=== PATIENT | female | born 2000 | race Caucasian/White ===

== ENCOUNTER 2021-05-22 09:57 | Inpatient (IN) | payer BC ==
[2021-05-22] MEDS ORDERED: LORazepam 2 MG/ML INJ IV STA ×2 (10:17→10:18)
[2021-05-22] MEDS ORDERED: levETIRAcetam IV 1,000 MG in SALINE 1 100ML.BAG IVPB STA (10:23)
[2021-05-22] MEDS ORDERED: NALOXONE 0.4 MG/ML 1 ML VIAL IV PRN (10:35)
[2021-05-22] MEDS ORDERED: LORazepam 2 MG/ML INJ IV PRN (10:35)
--- NOTE | 2021-05-22 10:35 | ED ---
General Adult HPI - General Chief complaint: Seizure Stated complaint: seizure Time Seen by Provider: 05/22/21 09:59 Source: patient, EMS, RN notes reviewed, old records reviewed (Reviewed report from [facility]) Mode of arrival: EMS Limitations: altered mental status, physical limitation - History of Present Illness Initial comments: Patient is a 21-year-old female presenting to the emergency department from new onset seizure. Patient was seen and [facility] earlier today and patient had a seizure at home. Patient had a second seizure lasted around 30 seconds in the emergency department. Patient was given Valium. Patient has no history of seizures previously shortly after arrival patient does have generalized tonic clonic seizure activity lasting a some 1 minute. Patient is postictal following this and further history is limited. - Related Data Allergies Allergy/AdvReac Type Severity Reaction Status Date / Time No Known Allergies Allergy Verified 05/22/21 10:00 Review of Systems ROS Statement: Those systems with pertinent positive or pertinent negative responses have been documented in the HPI. Limitations: ROS unobtainable due to patients medical condition Past Medical History Additional Past Medical History / Comment(s): Tachycardia History of Any Multi-Drug Resistant Organisms: None Reported Past Surgical History: No Surgical Hx Reported Past Psychological History: ADD/ADHD, Anxiety, Depression Smoking Status: Vaper Past Alcohol Use History: Occasional Past Drug Use History: Marijuana General Exam Limitations: altered mental status, physical limitation General appearance: alert, other (Patient with generalized tonic-clonic activity and postictal following this.) Head exam: Present: atraumatic Eye exam: Present: normal appearance, PERRL Neck exam: Present: normal inspection. Absent: tenderness, meningismus Respiratory exam: Present: normal lung sounds bilaterally Cardiovascular Exam: Present: regular rate, normal rhythm GI/Abdominal exam: Present: soft. Absent: tenderness Extremities exam: Present: normal inspection Neurological exam: Present: altered Psychiatric exam: Present: other (Nonverbal) Skin exam: Present: normal color Course Vital Signs 05/22/21 05/22/21 10:00 10:21 Temperature 98.4 F Pulse Rate 74 112 H Respiratory 18 18 Rate Blood Pressure 115/73 122/68 O2 Sat by Pulse 97 92 L Oximetry Medical Decision Making - Medical Decision Making Patient was given Ativan. Patient will be started on Keppra. Dr. Edmondson has been called for admission for Dr. Crowell. Neurology will also be placed on consult Disposition Clinical Impression: New onset seizure Disposition: ADMITTED IP TO THIS HOSP Instructions (If sedation given, give patient instructions): Seizure/Epilepsy Discharge Instructions & Follow-Up Is patient prescribed a controlled substance at d/c from ED?: No Referrals: Martín Crowell MD [Primary Care Provider] - 1-2 days Decision Time: 10:35
[2021-05-22] MEDS: SODIUM CHLORIDE 0.9% 1,000 ML IV SCH (10:42)
[2021-05-22 14:52] LABS: Appearance,Urine Clear (Clear); Bilirubin,Urine Negative (Negative); Blood,Urine Negative (Negative); Color,Urine Light Yellow; Glucose,Urine (UA) Negative (Negative); Ketones,Urine 1+ (Negative); Leukocyte Esterase,Urine Negative (Negative); Nitrite,Urine Negative (Negative); PH, Urine 6.5 (5.0-8.0); Protein,Urine Negative (Negative); Specific Gravity,Urine 1.014 (1.001-1.035); Urobilinogen,Urine <2.0 mg/dL (<2.0)
[2021-05-22 15:38] LABS: Amphetamine Screen,Urine Not Detected (NotDetected); Cocaine Screen,Urine Not Detected (NotDetected); Opiate Screen,Urine Not Detected (NotDetected); Phencyclidine Screen,Urine Not Detected (NotDetected); Urn Cannabinoid Scrn Detected (NotDetected)
[2021-05-22 15:39] LABS: Barbiturate Screen,Urine Not Detected (NotDetected); Benzodiazepines Screen,Urine Detected (NotDetected); Methadone Screen, Urine Not Detected (NotDetected); Oxycodone Screen, Urine Not Detected (NotDetected); Tricyclic Antidepressant,Urine Not Detected (NotDetected)
[2021-05-22] MEDS ORDERED: LACTULOSE 20 GM/30 ML CUP PO PRN (19:48)
[2021-05-22] MEDS ORDERED: CALCIUM CARBONATE 500 MG CHEWABLE PO PRN (19:48)
[2021-05-22] MEDS ORDERED: ACETAMINOPHEN TAB 325 MG TAB PO PRN (19:48)
[2021-05-22] MEDS ORDERED: ONDANSETRON 4 MG/2 ML VIAL IVP PRN (19:48)
--- NOTE | 2021-05-22 19:51 | P.HPIM ---
History of Present Illness H&P Date: 05/22/21 Chief Complaint: Seizure This is a 21-year-old patient who follows with Dr. Crowell. History is obtained by the mother at the bedside. Chronic stable medical conditions include ADHD, depression, has been taking medications for about 4 years. When she was younger she had episodes of tachycardia. Did follow up with cardiology. No specific diagnosis. Patient is dose vaping also does marijuana. She works at a restaurant. Lives with her boyfriend. Early hours of the morning patient is boyfriend called the patient's mother stating that something was not right. Episode of seizure was witnessed that including her staring out arms stretched out patient being confused afterwards. Prior to that patient had made along moaning sound. Patient was then taken to [facility] where she had a second episode. Patient also had an episode in our ER. Patient did receive Valium. Also received IV Keppra 750 mg. Neurology was consulted. No prior history of head injury. No history of childhood seizures. Patient herself is somewhat lethargic to give any history right although she does wake up. Admitting review of systems cannot be done as patient other lethargic. Past medical history to include: ADHD, depression, tachycardia Social history: Lives with her boyfriend. Works at a restaurant. Does vaping and marijuana. Family history: Father from esophageal cancer. Had a bypass in his 50s. Physical examination: VITAL SIGNS: 98.4, 74, 18, 115/73, 97% room air upon presentation GENERAL: BMI 20.4, laying in bed lethargic but arousable. EYES: Pupils equal. Conjunctiva normal. HEENT: External appearance of nose and ears normal, oral cavity grossly normal. Nose and ear piercing NECK: JVD not raised; masses not palpable. HEART: First and second heart sounds are normal; no edema. LUNGS: Respiratory rate normal; clear to auscultation. ABDOMEN: Soft, nontender, liver spleen not palpable, no masses palpable. PSYCH: Patient is lethargic but able to assessl. NEUROLOGICAL: Cranial nerves grossly intact; no facial asymmetry, power and se nsation grossly intact. LYMPHATICS: No lymph nodes palpable in the axilla and neck INVESTIGATIONS, reviewed in the clinical context: UA positive for ketones 1+ Urine drug screen: Positive for benzodiazepine, marijuana Assessment and plan: -New onset of seizures in a patient who was at 3 episodes of what appears to be tonic-clonic seizure. No history of head injury. No prior seizure activity. Patient does take marijuana. Note that patient also on Effexor XR. Neuro checks. IV Keppra. Ativan when necessary. Neurology consultation. MRI brain -ADHD: Amiodarone 10 mg a day -Anxiety depression Effexor XL 75 mg daily, hold currently. Xanax 0.5 mg twice a day -Nicotine dependence in the form of vaping. -Recreational marijuana use Care was discussed with the mother the bedside. IV fluids. Subcu Lovenox. Resume home medications except for Effexor XR. Neuro checks. MRI of the brain. EEG Past Medical History Additional Past Medical History / Comment(s): Tachycardia History of Any Multi-Drug Resistant Organisms: None Reported Past Surgical History: No Surgical Hx Reported Additional Past Surgical History / Comment(s): [place] teeth extractions. Past Anesthesia/Blood Transfusion Reactions: No Reported Reaction Past Psychological History: ADD/ADHD, Anxiety, Depression Additional Psychological History / Comment(s): Pt resides with her boyfriend. She is independent. Smoking Status: Vaper Past Alcohol Use History: Occasional Past Drug Use History: Marijuana - Past Family History Father Family Medical History: Cancer Additional Family Medical History / Comment(s): Father is from esophageal cancer. He had CABG in his 50s. Mother Additional Family Medical History / Comment(s): POTS Medications and Allergies Home Medications Medication Instructions Recorded Confirmed Type ALPRAZolam [Xanax] 0.5 mg PO BID 05/22/21 05/22/21 History Dextroamphetamine/Amphetamine 10 mg PO DAILY 05/22/21 05/22/21 History [Adderall] Norgestimate-Ethinyl Estradiol 1 tab PO DAILY 05/22/21 05/22/21 History [Tri-Estarylla Tablet] Venlafaxine HCl [Effexor XR] 75 mg PO DAILY 05/22/21 05/22/21 History Allergies Allergy/AdvReac Type Severity Reaction Status Date / Time No Known Allergies Allergy Verified 05/22/21 11:05 Physical Exam Vitals: Vital Signs Temp Pulse Pulse Resp BP BP Pulse Ox 05/22/21 17:40 98.3 F 92 17 94/71 95 05/22/21 17:12 94 16 110/72 97 05/22/21 16:30 94 18 110/72 98 05/22/21 15:30 71 18 114/63 97 05/22/21 14:30 106 H 18 90/63 96 05/22/21 13:30 106 H 18 80/56 96 05/22/21 10:43 96 18 120/57 96 05/22/21 10:21 112 H 18 122/68 92 L 05/22/21 10:00 98.4 F 74 18 115/73 97 Intake and Output 05/22/21 05/22/21 05/22/21 06:59 14:59 22:59 Intake Total 240 Balance 240 Intake: Oral 240 Other: # Voids 2 Weight 58.967 kg Results Labs: Abnormal Lab Results - Last 24 Hours (Table) 05/22/21 Range/Units 14:30 Urine Ketones 1+ H (Negative) U Benzodiazepines Scrn Detected H (NotDetected) U Marijuana (THC) Screen Detected H (NotDetected) Thrombosis Risk Factor Assmnt - Choose All That Apply Any of the Below Risk Factors Present?: Yes Each Factor Represents 1 point: Medical pt on bed rest Other Risk Factors: No Other congenital or acquired thrombophilia - If yes, enter type in comment: No Thrombosis Risk Factor Assessment Total Risk Factor Score: 1 Thrombosis Risk Factor Assessment Level: Low Risk
[2021-05-22] MEDS: ALPRAZolam 0.5 MG TAB PO SCH (22:34)
[2021-05-22] MEDS: levETIRAcetam IV 750 MG in SODIUM CHLORIDE 0.9% 100 ML IVPB SCH (22:34)
[2021-05-22] MEDS: NICOTINE 14MG/24HR PATCH TRANSDERM SCH (22:34)
[2021-05-22] MEDS: ENOXAPARIN 40 MG/0.4 ML SYRINGE SQ SCH (22:34)
--- NOTE | 2021-05-23 | P.CNNES ---
History of Present Illness Consult date: 05/22/21 Requesting physician: Davon Lopez Reason for Consult: New onset seizure History of Present Illness: Patient is a 21-year-old female with history of tachycardia came to the hospital by ambulance today at 9:57 AM for new onset seizure. Patient was transferred from [facility]. EMS flow sheet not available in the chart. Patient's mother and patient's friend were present today. Patient last night was staying at her boyfriend's house, when while sleeping at 3 AM, he heard a strange sound and noticed that her arms went out, her back started arching, she was frothing from the mouth. She was not responding at that time. Patient's boyfriend rolled her out of bed on her side. Patient did bite her tongue, but did not lose control of urine. Patient's boyfriend brought her to the [facility], and arrived there at around 5 AM. Patient states that prior to going to sleep, she was feeling fine. She just remembers waking up when she was going to her boyfriend's truck. After patient was brought to [facility], patient had a seizure in the ER, for which she was given Valium. She had a computed tomography scan an EKG done at that time. Patient was transferred to [facility] by ambulance. She had a third seizure in this ER. Patient was given Ativan and Keppra loading dose 1000 mg IV PB. She has not had any further seizures since then. Patient's friend had mentioned that patient does jerk a lot at night while sleeping. Usually in the middle of the sleep, not while waking up. Patient had some headache earlier in the ER but now it's gone. Patient's workup at [facility] revealed normal CBC, sodium 136 (137- 145), magnesium 20, TSH normal, coronavirus negative. EKG with normal sinus rhythm. Patient denies any history of concussions, no family history of epilepsy. Patient does take Adderall 10 mg daily, Effexor XR 75 mg every day, Xanax 0.5 mg at bedtime and control pills. Patient takes her medication very regularly, does not miss a dose, does not take excessive at other times. Patient states that she has history of tachycardia, which makes her feel lightheaded. Patient's mother states that she has been having spells in the last 2 months, in which she gets hot feeling, does not feel right, anxious, not comfortable, like will pass out. This would last for about 30 minutes but there is no loss of consciousness, no change in level of alertness or awareness. She can still talk and respond during these spells. These are happening about once or twice a week for the last couple months. She gets diaphoretic at that time. She never had any history of seizure ever in her life otherwise. Patient has history of tachycardia since she was a teenager. The tachycardia produces lightheadedness. Her above symptoms are completely different as compared to her history of tachycardia. Patient's UA is negative. Urine drug screen positive for marijuana and benzodiazepines. Urine hCG negative. Patient states that she has drank energy drinks in the past but has not done any for last 1-1/2 months. She does not drink excessive caffeine. She does not sleep well typically. Patient states she smokes marijuana, denies any drug use. Review of Systems As above in detail. All other review of systems reviewed and unremarkable. Denies any chest pain, abdominal pain, nausea vomiting diarrhea. Her tongue is swollen. No fever or chills. No headache at this time. No double vision or loss of vision. Past Medical History Additional Past Medical History / Comment(s): Tachycardia History of Any Multi-Drug Resistant Organisms: None Reported Past Surgical History: No Surgical Hx Reported Additional Past Surgical History / Comment(s): [place] teeth extractions. Past Anesthesia/Blood Transfusion Reactions: No Reported Reaction Past Psychological History: ADD/ADHD, Anxiety, Depression Additional Psychological History / Comment(s): Pt resides with her boyfriend. She is independent. Smoking Status: Vaper Past Alcohol Use History: Occasional Past Drug Use History: Marijuana - Past Family History Father Family Medical History: Cancer Additional Family Medical History / Comment(s): Father is from esophageal cancer. He had CABG in his 50s. Mother Additional Family Medical History / Comment(s): POTS Medications and Allergies Home Medications Medication Instructions Recorded Confirmed Type ALPRAZolam [Xanax] 0.5 mg PO BID 05/22/21 05/22/21 History Dextroamphetamine/Amphetamine 10 mg PO DAILY 05/22/21 05/22/21 History [Adderall] Norgestimate-Ethinyl Estradiol 1 tab PO DAILY 05/22/21 05/22/21 History [Tri-Estarylla Tablet] Venlafaxine HCl [Effexor XR] 75 mg PO DAILY 05/22/21 05/22/21 History Nicotine 14Mg/24Hr Patch [Habitrol] 1 patch TRANSDERM DAILY #14 patch 05/23/21 Rx levETIRAcetam [Keppra] 750 mg PO Q12HR #60 tab 05/23/21 Rx Allergies Allergy/AdvReac Type Severity Reaction Status Date / Time No Known Allergies Allergy Verified 05/22/21 11:05 Physical Examination - Vital Signs Vital Signs: Vital Signs Temp Pulse Pulse Resp BP BP Pulse Ox 05/22/21 17:40 98.3 F 92 17 94/71 95 05/22/21 17:12 94 16 110/72 97 05/22/21 16:30 94 18 110/72 98 05/22/21 15:30 71 18 114/63 97 05/22/21 14:30 106 H 18 90/63 96 05/22/21 13:30 106 H 18 80/56 96 05/22/21 10:43 96 18 120/57 96 05/22/21 10:21 112 H 18 122/68 92 L 05/22/21 10:00 98.4 F 74 18 115/73 97 Intake and Output 05/22/21 05/22/21 05/22/21 06:59 14:59 22:59 Intake Total 240 Balance 240 Intake: Oral 240 Other: # Voids 2 Weight 58.967 kg Patient is a young female, in no acute distress. Patient is alert awake oriented to time place and person. Speech and language functions are normal. Attention, concentration and fund of knowledge is adequate. On cranial examination, pupils are round and reacting to light, visual swan are full on confrontation, extraocular muscles are intact with no nystagmus. Face is symmetric, tongue protrudes to the midline. Palatal elevation and sensation normal, hearing and shoulder shrug normal, facial sensation normal. Shoulder shrug normal. Patient's tongue is significantly bruised, right side much worse than left. On muscle strength testing, there is no pronator drift and the strength is normal in arms and legs distally and proximally. Deep tendon reflexes are 2+ and symmetric and plantars downgoing. Sensory to touch is equal with no neglect. Cerebellar function showed no ataxia for [id number] testing. No dysdiadochokinesia. Tone and bulk of muscles normal. Gait normal. On general examination, there is no carotid bruit or murmur, S1-S2 audible. Abdomen is soft nontender. Chest is clear. Peripheral pulses are present. No edema. Results - Laboratory Findings CBC and BMP: 05/23/21 06:34 Abnormal Lab Findings: Abnormal Labs 05/22/21 14:30 Urine Ketones 1+ H U Benzodiazepines Scrn Detected H U Marijuana (THC) Screen Detected H Assessment and Plan Assessment: * New onset seizure, unclear etiology. Patient had 3 grand mal seizures in a matter of about 6-8 hours. No obvious provoking factor identified. Patient does take Xanax, which she takes it regularly, does not miss a dose. ? Benzo withdrawal seizure. Her urine was positive for benzodiazepine, but it was taken after she has received Valium at [facility]. Patient denies excessive caffeine. * History of tachycardia. * Marijuana use. Plan: * MRI of the brain with and without contrast * EEG in the morning * Continue Keppra 750 mg twice a day * Patient informed of [place] state law of no driving unless seizure free for 6 months, climbing ladders, operating dangerous machinery or unsupervised swimming. * Telemetry monitoring. * We will follow after above test results are completed. Thank you for the consultation.
[2021-05-23] MEDS: SODIUM CHLORIDE 0.9% 1,000 ML IV SCH ×2 (01:38→15:58)
[2021-05-23 06:59] LABS: Basophils % (A) 0 %; Eosinophils # (A) 0.1 k/uL (0-0.7); Eosinophils % (A) 1 %; HCT 34.4 % (34.0-46.0); HGB 11.3 gm/dL (11.4-16.0); Lymphocytes # (A) 2.5 k/uL (1.0-4.8); Lymphocytes % (A) 38 %; MCH 29.9 pg (25.0-35.0); MCHC 32.8 g/dL (31.0-37.0); MCV 90.9 fL (80.0-100.0); Mean Platelet Volume 7.8; Monocytes # (A) 0.3 k/uL (0-1.0); Monocytes % (A) 5 %; Neutrophils # (A) 3.6 k/uL (1.3-7.7); Neutrophils % (A) 54 %; Platelet Count 219 k/uL (150-450); RBC 3.78 m/uL (3.80-5.40); RDW 13.5 % (11.5-15.5); WBC 6.7 k/uL (3.8-10.6)
[2021-05-23] MEDS ORDERED: NORGESTIMATE ETHINYL ESTRADIOL PO SCH (09:00)
[2021-05-23] MEDS ORDERED: Dextroamphetamine/Amphetamine [Adderall] PO SCH (09:00)
[2021-05-23] MEDS: ALPRAZolam 0.5 MG TAB PO SCH (09:50)
[2021-05-23] MEDS: ENOXAPARIN 40 MG/0.4 ML SYRINGE SQ SCH (09:51)
[2021-05-23] MEDS: NICOTINE 14MG/24HR PATCH TRANSDERM SCH (09:52)
[2021-05-23] MEDS: levETIRAcetam IV 750 MG in SODIUM CHLORIDE 0.9% 100 ML IVPB SCH (10:16)
[2021-05-23] MEDS ORDERED: VENLAFAXINE HCL ER 75 MG CAP PO SCH (11:15)
[2021-05-23 11:45] VITALS: BMI 20.3
[2021-05-23 13:21] VITALS: BP 111/69; PULSE 71; RESP 18; TEMP 99.1
[2021-05-23 13:59] LABS: Magnesium 2.1 mg/dL (1.5-2.4)
--- NOTE | 2021-05-23 14:51 | MR ---
PRE AND POSTCONTRAST ENHANCED MRI OF THE BRAIN: CLINICAL HISTORY: New onset seizures CONTRAST: Gadavist 6 mL Multiplanar and multispin-echo imaging of the brain was performed both before and after the administr ation of contrast. The ventricles, basal cisterns and sulci overlying the cerebral convexities are within normal limits. There is no evidence for midline shift or mass effect. Acute intracranial hemorrhage or extra-axial collection is not evident. There are no abnormal areas of increased or decreased signal intensity within the brain parenchyma. Following contrast administration, there is no evidence for pathologic enhancement or enhancing mass. The paranasal sinuses and mastoid air cells are well-aerated. IMPRESSION: Unremarkable pre and postcontrast enhanced MRI of the brain.
--- NOTE | 2021-05-23 17:42 | EEG ---
ELECTROENCEPHALOGRAM REPORT DATE OF SERVICE: 05/23/2021. PREAMBLE: This is a 21-year-old female with new-onset seizures. This study is performed to evaluate for any epileptiform activity. EEG FINDINGS: This is a 21-channel digital EEG recorded with video competent, utilizing 10/20 international system with referential and bipolar montages. Background consists of moderately well developed and regulated, somewhat disorganized mixed frequencies of alpha, some theta and some fast frequency beta activity seen in bihemispheric region. Background is posterior-dominant and is slightly reactive to eye opening and closing. Some dysrhythmic mixed theta and delta activity was seen in the left posterior temporal region, which at times appears artifactual in nature. Some drowsiness was seen with bilaterally symmetric theta frequency rhythm. Brief stage II sleep was seen with presence of some sleep spindles. Photic driving response was not seen. There were a few documentations of either jaw tremoring, slight body jerk or head jerk, but there was no associated electrographic correlate with these events. No focal or generalized epileptiform activity was seen. IMPRESSION: This is a borderline abnormal EEG due to slightly disorganized background, suggestive of nonspecific generalized cerebral dysfunction. Suggest prolonged EEG for further evaluation of any epileptiform activity. MMODL / IJN: [id number] /
--- NOTE | 2021-05-23 17:52 | P.PN ---
Subjective Progress Note Date: 05/23/21 Patient was seen for a follow-up. Patient's mother and boyfriend were both present today. Patient states her headache is completely gone. She had some frontal temporal headache, like a sinus headache, but now is completely resolved. Patient states that she does get headache "time to time". Denies any upper respiratory infection. Patient believes her memory is normal. No memory loss. Denies any fever or chills. Denies any photophobia, light or noise sensitivity or any neck stiffness. Her tongue swelling has improved. Still difficulty to eat because of tongue laceration. On asking detailed history, it appears patient does use marijuana 1 joint a day, although per her boyfriend she does more than that. She also does Vaping a lot. She denies any sleep deprivation, although her boyfriend states that she does jerk a lot at night. Objective - Vital Signs Vital signs: Vital Signs Temp 99.1 F 05/23/21 12:30 Pulse 71 05/23/21 12:30 Resp 18 05/23/21 12:30 BP 111/69 05/23/21 12:30 Pulse Ox 100 05/23/21 12:30 Intake & Output 05/22/21 05/23/21 05/23/21 18:59 06:59 18:59 Intake Total 240 200 240 Balance 240 200 240 Weight 58.967 kg 58.967 kg Intake: Oral 240 200 240 Other: # Voids 2 1 - Exam Patient's mental status, speech and language functions are normal. She is oriented 3. She knows that she is in [facility] in [place]. Her affect is normal. Cranial nerves are normal. Muscle strength is normal. Her gait is perfectly normal. No nuchal rigidity. - Labs CBC & Chem 7: 05/23/21 06:34 Labs: Abnormal Lab Results - Last 24 Hours (Table) 05/23/21 Range/Units 06:34 RBC 3.78 L (3.80-5.40) m/uL Hgb 11.3 L (11.4-16.0) gm/dL Assessment and Plan Assessment: * New onset seizure, unclear etiology. Patient had 3 grand mal seizures in a matter of about 6-8 hours. No obvious provoking factor identified. Concerned about possible Xanax withdrawal seizure, but patient states she has been taking Xanax regularly, does not miss a dose. Her urine was positive for benzodiazepine, but it was taken after she has received Valium at [facility]. Patient denies excessive caffeine. * History of tachycardia. * Marijuana use. * History of Vaping * Attention deficit disorder, on Adderall Plan: * MRI of the brain with and without contrast was performed, which is normal. No abnormal signal in the hippocampus. I personally reviewed the MRI as well. * EEG was performed, which is technically limited because of some electrode artifacts, and also was borderline abnormal EEG due to slightly disorganized background, suggestive of nonspecific generalized cerebral dysfunction. Suggest prolonged EEG for further evaluation of any epileptiform activity. * Continue Keppra 750 mg twice a day * I had a very prolonged discussion with the patient, mother and boyfriend. Then I had another discussion with Dr. Edmondson and with the patient and her family as well. It does appear that patient does multiple substances including prescribed Adderall, Xanax, Effexor, marijuana, on top she also does a lot of vaping. It is suspected that combination of these may have provoked the seizures. Patient's headache is completely resolved. She has no meningeal signs. We discussed about possibility of lumbar puncture, but patient completely declined. She wants to go home. Her white cells are normal including normal differential. Her temperature is 98.0 axillary. She has no meningeal signs, therefore likelihood of any intracranial infection is extremely low. Patient was recommended to return to the hospital if she gets any headaches, high fevers or recurrence of seizure. * Patient informed of [place] state law of no driving unless seizure free for 6 months, climbing ladders, operating dangerous machinery or unsupervised swimming. * Patient will undergo 2.5 hour EEG as an outpatient followed by appointment with Dr. Sherman for management of her seizure disorder. * In the meantime patient will continue with Keppra 750 mg twice a day. Time with Patient: Greater than 30
[2021-05-23 19:44] LABS: African American GFR (CKD) 121.3 (60.0-200.0); Albumin/Globulin Ratio 2.11 (1.60-3.17); Anion Gap 16.8 mmol/L (10.00-18.00); BUN/Creat Ratio 11.38 Ratio (12.00-20.00); Blood Urea Nitrogen 9.1 mg/dL (9.0-27.0); Calcium 8.6 mg/dL (8.7-10.3); Carbon Dioxide 17.2 mmol/L (20.0-27.5); Globulin 1.9 g/dL (1.6-3.3); Non-African American GFR(CKD) 104.6 (60.0-200.0); Potassium 3.5 mmol/L (3.5-5.5); Total Bilirubin 0.6 mg/dL (0.30-1.20); Total Protein 5.9 g/dL (6.2-8.2)
--- NOTE | 2021-05-23 23:00 | P.DS ---
Providers Date of admission: 05/22/21 10:35 Expected date of discharge: 05/23/21 Attending physician: Sam Edmondson Consults: 05/22/21 10:36 Consult Physician Urgent Consulting Provider: Brandan Newsome Consult Reason/Comments: new onset seizure Do you want consulting provider notified?: Yes Primary care physician: [facility] Course: Chief Complaint: Seizure This is a 21-year-old patient who follows with Dr. Crowell. History is obtained by the mother at the bedside. Chronic stable medical conditions include ADHD, depression, has been taking medications for about 4 years. When she was younger she had episodes of tachycardia. Did follow up with cardiology. No specific diagnosis. Patient is dose vaping also does marijuana. She works at a restaurant. Lives with her boyfriend. Early hours of the morning patient is boyfriend called the patient's mother stating that something was not right. Episode of seizure was witnessed that including her staring out arms stretched out patient being confused afterwards. Prior to that patient had made along moaning sound. Patient was then taken to [facility] where she had a second episode. Patient also had an episode in our ER. Patient did receive Valium. Also received IV Keppra 750 mg. Neurology was consulted. No prior history of head injury. No history of childhood seizures. Patient herself is somewhat lethargic to give any history right although she does wake up. Today: Discussed with Dr. Palumbo from neurology. Effexor to be continued. EEG did not show any seizure activity. Patient is feeling really well today. No headaches. No fever. Patient has a bit of a swollen tongue that she bit it. Has been out of bed. Patient is counseled at length about vaping and no marijuana. As advised about seizure precautions including no driving. Care was discussed both with the mother and patient boyfriend. And Dr. Palumbo. Patient to follow-up with Dr. Crane as outpatient. MRI of the brain was negative. Discussion and discharge planning more than 35 minutes Consultation: Dr. Palumbo from neurology Past medical history to include: ADHD, depression, tachycardia Social history: Lives with her boyfriend. Works at a restaurant. Does vaping and marijuana. Family history: Father from esophageal cancer. Had a bypass in his 50s. Physical examination: VITAL SIGNS: 99.1, 71, 18, 111/69, 100% room air GENERAL: Sitting up comfortable awake EYES: Pupils equal. Conjunctiva normal. HEENT: External appearance of nose and ears normal, oral cavity grossly normal. Nose and ear piercing. Right central tongue a bit swollen with tongue bite NECK: JVD not raised; masses not palpable. HEART: First and second heart sounds are normal; no edema. LUNGS: Respiratory rate normal; clear to auscultation. ABDOMEN: Soft, nontender, liver spleen not palpable, no masses palpable. PSYCH: AO 3, mood and affect normal. NEUROLOGICAL: Cranial nerves grossly intact; no facial asymmetry, power and sensation grossly intact. INVESTIGATIONS, reviewed in the clinical context: MRI brain: Unremarkable EEG: Negative for epilepsy UA positive for ketones 1+ Urine drug screen: Positive for benzodiazepine, marijuana Assessment and plan: -New onset of seizures in a patient who was at 3 episodes of what appears to be tonic-clonic seizure. MRI and EEG both negative. Continue with Catapres and 50 mg twice a day. Seizure precautions. Advised not to take vaping or marijuana. -ADHD: Adderall 10 mg a day -Anxiety depression Effexor XL 75 mg daily, Xanax 0.5 mg twice a day -Nicotine dependence in the form of vaping. Counseled -Recreational marijuana use Counseled Disposition: Home Plan - Discharge Summary Discharge Rx Participant: No New Discharge Prescriptions: New levETIRAcetam [Keppra] 750 mg PO Q12HR #60 tab Nicotine 14Mg/24Hr Patch [Habitrol] 1 patch TRANSDERM DAILY #14 patch Continue Venlafaxine HCl [Effexor XR] 75 mg PO DAILY Norgestimate-Ethinyl Estradiol [Tri-Estarylla Tablet] 1 tab PO DAILY Dextroamphetamine/Amphetamine [Adderall] 10 mg PO DAILY ALPRAZolam [Xanax] 0.5 mg PO BID Discharge Medication List ALPRAZolam [Xanax] 0.5 mg PO BID 05/22/21 [History] Dextroamphetamine/Amphetamine [Adderall] 10 mg PO DAILY 05/22/21 [History] Norgestimate-Ethinyl Estradiol [Tri-Estarylla Tablet] 1 tab PO DAILY 05/22/21 [History] Venlafaxine HCl [Effexor XR] 75 mg PO DAILY 05/22/21 [History] Nicotine 14Mg/24Hr Patch [Habitrol] 1 patch TRANSDERM DAILY #14 patch 05/23/21 [Rx] levETIRAcetam [Keppra] 750 mg PO Q12HR #60 tab 05/23/21 [Rx] Follow up Appointment(s)/Referral(s): Martín Crowell MD [Primary Care Provider] - 1-2 days Guillermo Crane MD [Medical Doctor] - 2 Weeks Patient Instructions/Handouts: Seizure/Epilepsy Discharge Instructions & Fol low-Up Activity/Diet/Wound Care/Special Instructions: No driving until further notice Discharge Disposition: HOME SELF-CARE
== END 2021-05-23 18:22 | disposition home or self-care (01) | DRG 101 ==
LOC: EC 09:57 → 5NMEDONC 10:35
PROVIDERS: ADMIT Hospitalist; ATTEND Hospitalist
DX: G40.409 Other generalized epilepsy and epileptic syndromes, not intractable, without status epilepticus (principal); F13.239 Sedative, hypnotic or anxiolytic dependence with withdrawal, unspecified; S01.512A Laceration without foreign body of oral cavity, initial encounter; F17.290 Nicotine dependence, other tobacco product, uncomplicated; F41.8 Other specified anxiety disorders; F12.90 Cannabis use, unspecified, uncomplicated; F90.9 Attention-deficit hyperactivity disorder, unspecified type; Z79.899 Other long term (current) drug therapy; X58.XXXA Exposure to other specified factors, initial encounter; Z86.79 Personal history of other diseases of the circulatory system
CPT/HCPCS: 70553; 80053; 80306; 81003; 81025; 83735; 85025; 95816; 96374; 99285

== ENCOUNTER → 2021-05-30 | Outpatient (CLI) | payer BC | LOC: NEUROMAIN 06:24 | PROVIDERS: ATTEND Psychiatry & Neurology Neurology | DX: R56.9 Unspecified convulsions (principal) | CPT/HCPCS: 95713 ==

== ENCOUNTER 2021-06-08 16:12 | Emergency (ER) | payer BC ==
[2021-06-08 16:27] VITALS: TEMP 98.2
--- NOTE | 2021-06-08 17:01 | ED ---
General Adult HPI - General Chief complaint: Psychiatric Symptoms Stated complaint: Headache,Mental Health Time Seen by Provider: 06/08/21 16:45 Source: patient, family, RN notes reviewed, old records reviewed Mode of arrival: ambulatory Limitations: no limitations - History of Present Illness Initial comments: 21-year-old female presents to the emergency room, alert and oriented 4, with complaints of increasing depression. She had a telephone health visit with her physician today stating that she's had increased depression since starting on Keppra in April for seizure disorder. Her Dr. states that this could be a side effect of the Keppra and to come to the emergency room for evaluation of her worsening depression. Patient states that she does not have a suicidal plan but she does wish she was . Patient has not been hospitalized for depression in the past. Family at bedside states that the doctor was suggesting switching her seizure medication to Vimpat. Patient states that she used to use THC and vape but quit in April after her seizures started. She states that she lives at home with her mom part-time and stays with her boyfriend part-time. She is in a safe relationship. -: days(s) (1) Severity scale (1-10): 0 Treatments Prior to Arrival: none - Related Data Home Medications Medication Instructions Recorded Confirmed ALPRAZolam [Xanax] 0.5 mg PO BID PRN 05/22/21 06/08/21 Norgestimate-Ethinyl Estradiol 1 tab PO DAILY 05/22/21 06/08/21 [Tri-Estarylla Tablet] Venlafaxine HCl [Effexor XR] 75 mg PO DAILY 05/22/21 06/08/21 Nicotine 7Mg/24Hr Patch [Habitrol] 1 patch TRANSDERM DAILY 06/08/21 06/08/21 levETIRAcetam [Keppra] 500 mg PO BID 06/08/21 06/08/21 Allergies Allergy/AdvReac Type Severity Reaction Status Date / Time No Known Allergies Allergy Verified 06/08/21 18:01 Review of Systems ROS Statement: Those systems with pertinent positive or pertinent negative responses have been documented in the HPI. ROS Other: All systems not noted in ROS Statement are negative. Past Medical History Additional Past Medical History / Comment(s): nocturnal seizures. Tachycardia History of Any Multi-Drug Resistant Organisms: None Reported Past Surgical History: No Surgical Hx Reported Additional Past Surgical History / Comment(s): [place] teeth extractions. Past Anesthesia/Blood Transfusion Reactions: No Reported Reaction Past Psychological History: ADD/ADHD, Anxiety, Depression Smoking Status: Vaper Past Alcohol Use History: Occasional Past Drug Use History: Marijuana - Past Family History Father Family Medical History: Cancer Additional Family Medical History / Comment(s): Father is from esophageal cancer. He had CABG in his 50s. Mother Additional Family Medical History / Comment(s): POTS General Exam Limitations: no limitations General appearance: alert, in no apparent distress Head exam: Present: atraumatic, normocephalic, normal inspection Eye exam: Present: normal appearance, EOMI. Absent: scleral icterus, conjunctival injection ENT exam: Present: normal exam, normal oropharynx, mucous membranes moist Neck exam: Present: normal inspection, full ROM. Absent: tenderness, meningismus, lymphadenopathy, thyromegaly Respiratory exam: Present: normal lung sounds bilaterally. Absent: respiratory distress, wheezes, rales, rhonchi, stridor, chest wall tenderness, accessory muscle use, decreased breath sounds, prolonged expiratory Cardiovascular Exam: Present: regular rate, normal rhythm, normal heart sounds. Absent: systolic murmur, diastolic murmur, rubs, gallop, clicks, JVD GI/Abdominal exam: Present: soft, normal bowel sounds. Absent: distended, tenderness, guarding, rebound, rigid Back exam: Absent: tenderness, CVA tenderness (R), CVA tenderness (L) Neurological exam: Present: alert, oriented X3, normal gait Psychiatric exam: Present: normal affect, depressed, suicidal ideation (Denies plan, states that she wishes she was ) Course Vital Signs 06/08/21 06/08/21 06/08/21 16:21 17:00 18:00 Temperature 98.2 F Pulse Rate 94 Respiratory 20 18 18 Rate Blood Pressure 131/85 O2 Sat by Pulse 97 Oximetry 06/08/21 06/08/21 19:00 20:53 Temperature Pulse Rate 74 Respiratory 18 18 Rate Blood Pressure 130/86 O2 Sat by Pulse 96 Oximetry Medical Decision Making - Medical Decision Making 21-year-old female presents with increasing depression, sent by her doctor. States worsening depression since starting Keppra in April for seizure disorder. Patient was seen by EPS nurse Caal and is found not to meet inpatient criteria and can be discharged home. She is going home with her mother. They will contact their primary care doctor regarding changing her seizure medications. She was given her scheduled dose of 500 mg of Keppra in the emergency room. Patient is agreeable to this plan of care. I did discuss this case with Dr. Roca. - Lab Data Lab Results 06/08/21 06/08/21 Range/Units 18:49 18:51 Urine Color Light Yellow Urine Appearance Clear (Clear) Urine pH 7.5 (5.0-8.0) Ur Specific [place] 1.006 (1.001-1.035) Urine Protein Negative (Negative) Urine Glucose (UA) Negative (Negative) Urine Ketones Negative (Negative) Urine Blood Negative (Negative) Urine Nitrite Negative (Negative) Urine Bilirubin Negative (Negative) Urine Urobilinogen <2.0 (<2.0) mg/dL Ur Leukocyte Esterase Negative (Negative) Urine Opiates Screen Not Detected (NotDetected) Ur Oxycodone Screen Not Detected (NotDetected) Urine Methadone Screen Not Detected (NotDetected) Ur Propoxyphene Screen Not Detected (NotDetected) Ur Barbiturates Screen Not Detected (NotDetected) U Tricyclic Antidepress Not Detected (NotDetected) Ur Phencyclidine Scrn Not Detected (NotDetected) Ur Amphetamines Screen Not Detected (NotDetected) U Methamphetamines Scrn Not Detected (NotDetected) U Benzodiazepines Scrn Not Detected (NotDetected) Urine Cocaine Screen Not Detected (NotDetected) U Marijuana (THC) Screen Detected H (NotDetected) Disposition Clinical Impression: Depression Disposition: HOME SELF-CARE Condition: Good Instructions (If sedation given, give patient instructions): Depression (ED) Additional Instructions: Follow-up with the primary care doctor tomorrow morning. Return to the emergency room with any new or concerning symptoms. Is patient prescribed a controlled substance at d/c from ED?: No Referrals: None,Stated [REFERRING] - 1-2 days Time of Disposition: 20:29
[2021-06-08] MEDS ORDERED: ACETAMINOPHEN TAB 325 MG TAB PO STA (18:22)
[2021-06-08 18:57] LABS: Appearance,Urine Clear (Clear); Bilirubin,Urine Negative (Negative); Blood,Urine Negative (Negative); Color,Urine Light Yellow; Glucose,Urine (UA) Negative (Negative); Ketones,Urine Negative (Negative); Leukocyte Esterase,Urine Negative (Negative); Nitrite,Urine Negative (Negative); PH, Urine 7.5 (5.0-8.0); Protein,Urine Negative (Negative); Specific Gravity,Urine 1.006 (1.001-1.035); Urobilinogen,Urine <2.0 mg/dL (<2.0)
[2021-06-08 19:20] LABS: Amphetamine Screen,Urine Not Detected (NotDetected); Barbiturate Screen,Urine Not Detected (NotDetected); Benzodiazepines Screen,Urine Not Detected (NotDetected); Cocaine Screen,Urine Not Detected (NotDetected); Methadone Screen, Urine Not Detected (NotDetected); Opiate Screen,Urine Not Detected (NotDetected); Oxycodone Screen, Urine Not Detected (NotDetected); Phencyclidine Screen,Urine Not Detected (NotDetected); Tricyclic Antidepressant,Urine Not Detected (NotDetected); Urn Cannabinoid Scrn Detected (NotDetected)
[2021-06-08 19:22] VITALS: RESP 18
[2021-06-08] MEDS ORDERED: levETIRAcetam 500 MG TAB PO STA (20:27)
[2021-06-08 20:54] VITALS: BP 130/86; PULSE 74
== END 2021-06-08 21:02 | disposition home or self-care (01) ==
LOC: EC 16:12
DX: F32.A Depression, unspecified (principal); F41.9 Anxiety disorder, unspecified; F90.9 Attention-deficit hyperactivity disorder, unspecified type; F12.90 Cannabis use, unspecified, uncomplicated; F17.290 Nicotine dependence, other tobacco product, uncomplicated; G40.909 Epilepsy, unspecified, not intractable, without status epilepticus; Z72.89 Other problems related to lifestyle
CPT/HCPCS: 80306; 81003; 99284

== ENCOUNTER 2021-06-09 14:01 | Emergency (ER) | payer BC ==
[2021-06-09 14:11] VITALS: TEMP 98.2
[2021-06-09] MEDS ORDERED: PHENYTOIN SODIUM IVPB STA (14:20)
[2021-06-09] MEDS ORDERED: SODIUM CHLORIDE 0.9% IVPB STA (14:20)
--- NOTE | 2021-06-09 14:25 | ED ---
General Adult HPI - General Chief complaint: Recheck/Abnormal Lab/Rx Stated complaint: Infusion-Sent by Time Seen by Provider: 06/09/21 14:16 Source: patient, RN/MD Mode of arrival: ambulatory Limitations: no limitations - History of Present Illness Initial comments: Dictation was produced using [employer] dictation software. please excuse any grammatical, word or spelling errors. Chief Complaint: 21-year-old feel presents to emergency department for Dilantin loading dose History of Present Illness: To 21-year-old female she presents to the emergency department after instruction from her neurologist to come to the emergency department to receive a loading dose for Dilantin. Patient was on Keppra to manage her seizures. She allegedly is having side effects. She saw her neurologist today who is going to change her medications from Her to Dilantin. She was sent here for 50 mg per KG bolus. Case was discussed with Dr. Sherman who confirms this. He requests that patient be reminded to take her first oral dose of Dilantin tonight. He also requested patient be monitored in the emergency department 2 hours after infusion. Patient has no complaints. She presents with family member. The ROS documented in this emergency department record has been reviewed and confirmed by me. Those systems with pertinent positive or negative responses have been documented in the HPI. All other systems are other negative and/or noncontributory. PHYSICAL EXAM: General Impression: Alert and oriented x3, not in acute distress HEENT: Normocephalic atraumatic, extra-ocular movements intact, pupils equal and reactive to light bilaterally, mucous membranes moist. Cardiovascular: Heart regular rate and rhythm Chest: Able to complete full sentences, no retractions, no tachypnea Abdomen: abdomen soft, non-tender, non-distended, no organomegaly Musculoskeletal: Pulses present and equal in all extremities, no peripheral ed rell Motor: no focal deficits noted Neurological: CN II-XII grossly intact, no focal motor or sensory deficits noted Skin: Intact with no visualized rashes Psych: Normal affect and mood ED course: 21-year-old female presents to the emergency department for Dilantin loading dose. She is instructed by her neurologist to come to the emergency department to receive infusion. Vital signs upon arrival are within acceptable limits. Patient is well-appearing at the bedside. Phenytoin was administered. Patient did have some episodes of nausea and pain at the infusion site. Rate was decreased. Patient was observed after the infusion. She denies any significant issues after the infusion. Patient be discharged. Advised follow-up with neurologist. Patient's pharmacy had a repeat closed. She is instructed by her neurologist to figure 300 mg dose tonight. Patient given the duration milligram oral pills to take home to take before bed. - Related Data Home Medications Medication Instructions Recorded Confirmed Venlafaxine HCl [Effexor XR] 75 mg PO DAILY 05/22/21 06/09/21 Norgestimate-Ethinyl Estradiol 1 tab PO DAILY 06/09/21 06/09/21 [Tri-Sprintec Tablet] Phenytoin Sodium Extended 300 mg PO HS 06/09/21 06/09/21 [Dilantin] Allergies Allergy/AdvReac Type Severity Reaction Status Date / Time No Known Allergies Allergy Verified 06/09/21 17:20 Review of Systems ROS Statement: Those systems with pertinent positive or pertinent negative responses have been documented in the HPI. ROS Other: All systems not noted in ROS Statement are negative. Past Medical History Past Medical History: Seizure Disorder Additional Past Medical History / Comment(s): nocturnal seizures. Tachycardia History of Any Multi-Drug Resistant Organisms: None Reported Past Surgical History: No Surgical Hx Reported Additional Past Surgical History / Comment(s): [place] teeth extractions. Past Anesthesia/Blood Transfusion Reactions: No Reported Reaction Past Psychological History: ADD/ADHD, Anxiety, Depression Smoking Status: Vaper Past Alcohol Use History: Occasional Past Drug Use History: Marijuana - Past Family History Father Family Medical History: Cancer Additional Family Medical History / Comment(s): Father is from esophageal cancer. He had CABG in his 50s. Mother Additional Family Medical History / Comment(s): POTS General Exam Limitations: no limitations Course Vital Signs 06/09/21 06/09/21 14:06 15:15 Temperature 98.2 F Pulse Rate 93 83 Respiratory 16 18 Rate Blood Pressure 123/81 112/70 O2 Sat by Pulse 99 99 Oximetry Disposition Clinical Impression: Encounter for monitoring Dilantin therapy Disposition: HOME SELF-CARE Condition: Good Instructions (If sedation given, give patient instructions): Phenytoin (By mouth) Is patient prescribed a controlled substance at d/c from ED?: No Referrals: Martín Crowell MD [Primary Care Provider] - 1-2 days
[2021-06-09] MEDS ORDERED: ONDANSETRON 4 MG/2 ML VIAL IVP STA (16:11)
[2021-06-09] MEDS ORDERED: SODIUM CHLORIDE 0.9% 500 ML 500 ML IV ONE (16:12)
[2021-06-09 16:53] VITALS: BP 112/70; PULSE 83; RESP 18
[2021-06-09] MEDS ORDERED: PHENYTOIN SODIUM EXTENDED 100 MG CAP PO STA (19:06)
== END 2021-06-09 19:41 | disposition home or self-care (01) ==
LOC: EC 14:01
DX: Z51.81 Encounter for therapeutic drug level monitoring (principal); F17.290 Nicotine dependence, other tobacco product, uncomplicated
CPT/HCPCS: 93005; 99283; 96365; 96366; 96375; J1165; J2405